=== PATIENT | female | born 1960 | race Caucasian/White ===

== ENCOUNTER → 2016-09-19 | Outpatient (CLI) | payer SELFPAY ==
[~2016-09-19] VITALS: Ht 172.7 cm; Wt 104.0 kg
[~2016-09-19] MED LIST: CARAFATE100 MG/ML PO; FLEXERIL10 MG PO; LOVAZA1 GM PO; MAGIC MOUTHWASH1 ML MM; MOTRIN800 MG PO; PROZAC20 MG PO; SYNTHROID125 MCG PO; ZOFRAN4 MG PO
[2016-09-19 07:29] VITALS: BP 123/75
== END | disposition home or self-care (01) ==
LOC: IVINF 07:22
PROVIDERS: Internal Medicine Endocrinology, Diabetes & Metabolism
DX: R53.82 Chronic fatigue, unspecified (principal)
CPT/HCPCS: 80400; 82024 90; 82533 91; 96374; 96374 59; J0834